=== PATIENT | male | born 1995 | race Caucasian/White ===

== ENCOUNTER 2019-12-15 22:23 | Emergency (ER) | payer OTHER ==
[~2019-12-15] VITALS: Ht 170.2 cm; Wt 81.6 kg
[2019-12-15 22:30] VITALS: BP_SYST 134
--- NOTE | 2019-12-15 22:40 | NUR ---
Patient to ER bed 5 to gown for evaluation. Side rails up.
--- NOTE | 2019-12-15 22:50 | NUR ---
PATIENT AMBULATORY , AAOX 4 COMPLAINING OF CHEST TIGHTNESS INTERMITTENTLY X 2 DAYS, REPORTS STARTING AGAIN AT 2200 AFTER PLAYING SOCCER. HX OF ASTHMA. DENIES ANY PAIN. O2 SATURATION 98% ROOM AIR.
--- NOTE | 2019-12-15 22:53 | NUR ---
ELLI RIDER at bedside examining patient.
[2019-12-15] MEDS ORDERED: IPRATROPIUM/ALBUTEROL SULFATE 3 ML AMPUL.NEB (DUONEB) INH ONE (23:00)
--- NOTE | 2019-12-15 23:00 | NUR ---
RT AT THE BEDSIDE WITH BREATHING TREATMENT, PT TOLERATING WELL
--- NOTE | 2019-12-15 23:15 | NUR ---
PT IS RELAXING IN THE BED, NO SIGNS OF DISTRESS, NO SOB. DENIES ANY PAIN AFTER BREATHING TREATMENT. REPORTS "FEELING MUCH BETTER".
--- NOTE | 2019-12-15 23:30 | NUR ---
Patient given written and verbal discharge instructions and verbalizes understanding. ER MD discussed with patient the results and treatment provided. Patient in stable condition. ID arm band removed. Rx of ALBUTEROL INH given. Patient educated on pain management and to follow up with PMD. Pain Scale 0/10. Opportunity for questions provided and answered. Medication side effect fact sheet provided.
[2019-12-15 23:34] VITALS: BP_SYST 134
== END 2019-12-15 23:34 | disposition home or self-care (01) ==
LOC: SED 22:23
DX: J45.909 Unspecified asthma, uncomplicated (principal); R07.89 Other chest pain
CPT/HCPCS: 71046-TC; 93005; 94640; 99283

== ENCOUNTER 2020-11-08 22:09 | Emergency (ER) | payer OTHER ==
[~2020-11-08] VITALS: Ht 170.2 cm; Wt 83.9 kg
[2020-11-08 23:05] VITALS: BP_SYST 138
[2020-11-09] MEDS ORDERED: IBUPROFEN 600 MG TABLET PO ONE
[2020-11-09] MEDS ORDERED: IBUP-1969 PO (00:21)
[2020-11-09] MEDS ORDERED: HYDR-3917 PO (00:21)
[2020-11-09 00:30] VITALS: BP_SYST 138
== END 2020-11-09 00:30 | disposition home or self-care (01) ==
LOC: SED 22:09
DX: M23.91 Unspecified internal derangement of right knee (principal); J45.909 Unspecified asthma, uncomplicated
CPT/HCPCS: 73564; 99283